=== PATIENT | female | born 1965 | race Caucasian/White ===

== ENCOUNTER → 2024-07-02 09:32 | Outpatient (REF) | payer OTHER, SELFPAY ==
[2024-07-02 11:37] LABS: Rubella Positive
[2024-07-02 12:00] LABS: Hepatitis B Surface Antibody Negative
[2024-07-04 12:25] LABS: Quantiferon TB Gold Plus Negative (Negative)
== END ==
LOC: REG 09:32
PROVIDERS: ATTENDING PHYSICIAN Nurse Practitioner Family
DX: Z23 Encounter for immunization (principal)
CPT/HCPCS: 36415; 86480; 86706; 86735; 86762; 86765; 86787